=== PATIENT | female | born 1990 | race African-American/Black ===

== ENCOUNTER 2018-01-13 12:31 | Emergency (ER) | payer MEDICAID ==
[~2018-01-13] VITALS: Ht 152.4 cm; Wt 69.4 kg
[2018-01-13 12:55] VITALS: BP 136/90
== END 2018-01-13 16:08 | disposition left against medical advice (07) ==
LOC: ER 12:36
DX: B34.9 Viral infection, unspecified (principal); F17.210 Nicotine dependence, cigarettes, uncomplicated; J45.909 Unspecified asthma, uncomplicated; R53.1 Weakness

== ENCOUNTER 2023-10-29 10:30 | Emergency (ER) | payer MEDICAID ==
[~2023-10-29] VITALS: Ht 152.4 cm; Wt 83.1 kg
[2023-10-29 11:28] VITALS: BP 141/99; PULSE 109; RESP 18; O2SAT 98
[2023-10-29] MEDS: HYDROcodone-ACET 5/325MG TAB PO ONE (12:13)
[2023-10-29] MEDS: ONDANSETRON ODT 4 MG TAB PO ONE (12:15)
[2023-10-29 13:00] LABS: Basophils # (auto) 0.1 10 ^3/uL (0-0.2); Basophils % (auto) 0.6 % (0.0-2.0); Eosinophils # (auto) 0.1 10 ^3/uL (0-0.8); Eosinophils % (auto) 0.5 % (0.0-7.0); Hemoglobin 13.5 g/dL (12.2-16.2); Lymphocytes # (auto) 3.3 10 ^3/uL (0.4-5.4); Lymphocytes % (auto) 29.8 % (10.0-50.0); Mean Corpuscular Hemoglobin 28.4 pg (28.0-32.0); Monocytes # (auto) 0.9 10 ^3/uL (0-1.3); Monocytes % (auto) 7.9 % (0.0-12.0); Neutrophils # (auto) 6.7 10 ^3/uL (1.6-8.6); Neutrophils % (auto) 61.2 % (37.0-80.0); Red Blood Cells 4.77 10^6/uL (4.0-5.20); Red Cell Distribution Width 13.8 % (11.8-14.3); White Blood Cell 10.9 10^3/uL (4.4-10.8)
[2023-10-29 13:03] LABS: Anion Gap 6 (5-15); Carbon Dioxide 23 mmol/L (20-30); Chloride 109 mmol/L (98-107); Sodium 138 mmol/L (136-145)
[2023-10-29 13:04] LABS: Calcium 9.6 mg/dL (8.5-10.1)
[2023-10-29 13:09] LABS: BUN/Creatinine Ratio 8.8 (10.0-20.0); Blood Urea Nitrogen 6 mg/dL (9-23); Glucose 103 mg/dL (74-106)
[2023-10-29 13:23] LABS: Rapid Strep A Screen-Throat Negative
[2023-10-29] MEDS ORDERED: CEPH500T PO (13:43)
[2023-10-29] MEDS ORDERED: PRED20TA2 PO (13:43)
[2023-10-29] MEDS ORDERED: IBUP1TAB5 PO (13:43)
[2023-10-29] MEDS: cefTRIAXone SOD 1,000 MG VL IM ONE (13:49)
[2023-10-29 13:50] VITALS: TEMP 97.8
[2023-10-29] MEDS: IBUPROFEN 600 MG TAB PO ONE (13:50)
[2023-10-29] MEDS: DexAMETHasone 4 MG TAB PO ONE (13:58)
== END 2023-10-29 14:01 | disposition home or self-care (01) ==
LOC: ER 10:30
DX: L03.221 Cellulitis of neck (principal); L03.211 Cellulitis of face; J45.909 Unspecified asthma, uncomplicated; F17.210 Nicotine dependence, cigarettes, uncomplicated; Z79.1 Long term (current) use of non-steroidal anti-inflammatories (NSAID); Z79.899 Other long term (current) drug therapy
CPT/HCPCS: 36415; 70490; 80048; 85025; 86308; 87040; 87070; 87880; 96372; 99285; J0696; J8540; Q0162

== ENCOUNTER 2024-02-19 05:21 | Emergency (ER) | payer MEDICAID ==
[~2024-02-19] VITALS: Ht 152.4 cm; Wt 82.0 kg
[~2024-02-19 05:21] MED LIST: CEPH500T PO; IBUP1TAB5 PO; PRED20TA2 PO
[2024-02-19 07:05] VITALS: BP 148/87; TEMP 98.1; O2SAT 99
[2024-02-19 07:09] VITALS: PULSE 104; RESP 18
[2024-02-19] MEDS ORDERED: CIPR1SUS8 OT (07:23)
[2024-02-19] MEDS ORDERED: AUG875T PO (07:23)
== END 2024-02-19 07:23 | disposition home or self-care (01) ==
LOC: ER 05:21
DX: H66.92 Otitis media, unspecified, left ear (principal); F17.210 Nicotine dependence, cigarettes, uncomplicated; F12.10 Cannabis abuse, uncomplicated; J45.909 Unspecified asthma, uncomplicated; Z79.899 Other long term (current) drug therapy

== ENCOUNTER 2024-06-13 01:38 | Emergency (ER) | payer MEDICAID ==
[~2024-06-13] VITALS: Ht 152.4 cm; Wt 83.0 kg
[~2024-06-13 01:38] MED LIST changes: +AUG875T PO; +CIPR1SUS8 OT
[2024-06-13] MEDS ORDERED: CYCL-837 PO (02:18)
[2024-06-13] MEDS ORDERED: IBUP-1455 PO (02:18)
[2024-06-13] MEDS: KETOROLAC TROMETH 30 MG/ML 1ML VIAL IM ONE (02:35)
[2024-06-13 02:45] VITALS: BP 133/87; PULSE 97; RESP 19; TEMP 98.5; O2SAT 98
== END 2024-06-13 02:53 | disposition home or self-care (01) ==
LOC: ER 01:38
DX: S33.5XXA Sprain of ligaments of lumbar spine, initial encounter (principal); F17.210 Nicotine dependence, cigarettes, uncomplicated; J45.909 Unspecified asthma, uncomplicated; F12.90 Cannabis use, unspecified, uncomplicated; Z79.52 Long term (current) use of systemic steroids; Z79.899 Other long term (current) drug therapy; X58.XXXA Exposure to other specified factors, initial encounter; Y93.89 Activity, other specified; Y92.89 Other specified places as the place of occurrence of the external cause; Y99.8 Other external cause status
CPT/HCPCS: 96372; 99283; J1885

== ENCOUNTER 2024-06-22 09:22 | Emergency (ER) | payer MEDICAID ==
[~2024-06-22] VITALS: Ht 152.4 cm; Wt 83.2 kg
[~2024-06-22 09:22] MED LIST changes: +CYCL-837 PO; +IBUP-1455 PO
[2024-06-22] MEDS ORDERED: IBUP-1456 PO (10:24)
[2024-06-22] MEDS ORDERED: BACDST PO (10:24)
[2024-06-22 10:34] VITALS: BP 141/94; PULSE 116; RESP 16; TEMP 98.6; O2SAT 100
== END 2024-06-22 10:49 | disposition home or self-care (01) ==
LOC: ER 09:22
DX: L02.214 Cutaneous abscess of groin (principal); J45.909 Unspecified asthma, uncomplicated; F41.9 Anxiety disorder, unspecified; F17.210 Nicotine dependence, cigarettes, uncomplicated; F15.90 Other stimulant use, unspecified, uncomplicated; Z79.899 Other long term (current) drug therapy
CPT/HCPCS: 10060

== ENCOUNTER 2024-06-24 13:09 | Emergency (ER) | payer MEDICAID ==
[~2024-06-24] VITALS: Ht 152.4 cm; Wt 78.4 kg
[~2024-06-24 13:09] MED LIST changes: +BACDST PO; +IBUP-1456 PO
[2024-06-24 15:30] VITALS: BP 134/84; PULSE 110; RESP 18; TEMP 98; O2SAT 98
[2024-06-24] MEDS ORDERED: AUG875T PO (15:40)
== END 2024-06-24 16:07 | disposition home or self-care (01) ==
LOC: ER 13:09
DX: J45.909 Unspecified asthma, uncomplicated (principal); F17.210 Nicotine dependence, cigarettes, uncomplicated; Z48.817 Encounter for surgical aftercare following surgery on the skin and subcutaneous tissue; Z79.1 Long term (current) use of non-steroidal anti-inflammatories (NSAID); Z79.52 Long term (current) use of systemic steroids

== ENCOUNTER 2024-09-12 19:44 | Emergency (ER) | payer MEDICAID ==
[~2024-09-12] VITALS: Ht 152.4 cm; Wt 80.0 kg
[~2024-09-12 19:44] MED LIST changes: -AUG875T PO
--- NOTE | 2024-09-12 20:08 | ED.PDOC ---
Eye-HPI HPI Comments This is a 34-year-old female presents to the ED chief complaint of right-sided facial pain and neck pain x2 months. States she has been following with a dentist several times was seen at [facility] ER most recently 2 weeks ago for the same complaint. Patient states no imaging has been done only at the dentist which x-rays were done she was told it was her wisdom teeth. She was also placed on regimen of antibiotics and [place] for the pain however she states the [place] did not help pain continues. Numbness, weakness, focal neuro deficits, fever or chills. Chief Complaint: Earache Time Seen by MD: 19:54 Primary Care Provider: UNKNOWN Reviewed Notes: Nurses Notes, Medications, Allergies Allergies: Coded Allergies: NO KNOWN ALLERGIES (Unverified , 01/13/18) Home Meds Active Scripts Methylprednisolone (Medrol Dosepak) 4 Mg Paresh, 4 MG PO UD for 6 Days, #21 TAB UAD Prov:BINA MCGEE HALL COORDINATOR 09/12/24 Azithromycin (Azithromycin) 500 Mg Tab, 1 TAB PO DAILY for 5 Days, #5 TAB Prov:BINA MCGEE HALL COORDINATOR 09/12/24 Ibuprofen (Ibuprofen) 800 Mg Tab, 1 TAB PO TID, #24 TAB Prov:MARTHA MCINTOSH PA 06/22/24 Sulfamethoxazole W/Trimethopri (Bactrim Ds Tablet) 1 Tab Tb, 1 TAB PO BID for 10 Days, #20 TAB Prov:MARTHA MCINTOSH PA 06/22/24 Ibuprofen Micronized (Ibuprofen) 800 Mg Tab, 800 MG PO TID PRN, #40 TAB Prov:ULISES VELASQUEZ HALL COORDINATOR 06/13/24 Cyclobenzaprine Hcl (Cyclobenzaprine Hcl) 5 Mg Tab, 1 TAB PO TID PRN, #30 TAB Prov:ULISES VELASQUEZ HALL COORDINATOR 06/13/24 Ciprofloxacin-Dexamethasone (Ciprofloxacin/Dexamethaso 0.3-0.1 %) 1 Fátima Fátima, 4 DROP OT BID for 7 Days, #1 KIT 0 Refills Prov:WOJCIECH JOVEL FAVOR MAKER 02/19/24 Ibuprofen Micronized (Ibuprofen) 600 Mg Tab, 600 MG PO Q8HPRN PRN, #30 TAB 0 Refills Prov:JIN BOWERS HALL COORDINATOR 10/29/23 Prednisone (Prednisone) 20 Mg Tab, 20 MG PO DAILY for 5 Days, #5 TAB 0 Refills Prov:JIN BOWERS [facility] 10/29/23 Cephalexin Monohydrate (Cephalexin) 500 Mg Tab, 1 TAB PO QID for 10 Days, #40 TAB 0 Refills Prov:JIN BOWERS [facility] 10/29/23 Past Medical History PAST MEDICAL HISTORY: Anxiety, Asthma GLOBAL COMPENSATION MANAGER History: No Pertinent GLOBAL COMPENSATION MANAGER History Family History Family History: Unknown Social History Smoker: Cigarettes Alcohol: Denies ETOH Use Drugs: Marijuana Lives In: Home Constitutional: denies: chills, diaphoresis, fatigue, fever, malaise, sweats, weakness, others EENTM: reports: ear pain, others (Right-sided facial pain); denies: blurred vision, double vision, ear bleeding, ear discharge, ear drainage, ear ringing, eye pain, eye redness, hearing loss, mouth pain, mouth swelling, nasal discharge, nose bleeding, nose congestion, nose pain, photophobia, tearing, throat pain, throat swelling, voice changes Respiratory: denies: cough, hemoptysis, orthopnea, SOB at rest, shortness of breath, SOB with excertion, stridor, wheezing, others Cardiovascular: denies: chest pain, dizzy spells, diaphoresis, Dyspnea on exertion, edema, irregular heart beat, left arm pain, lightheadedness, palpitations, PND, syncope, others Gastrointestinal: denies: abdomen distended, abdominal pain, blood streaked bowels, constipated, diarrhea, dysphagia, difficulty swallowing, hematemesis, m matti, nausea, poor appetite, poor fluid intake, rectal bleeding, rectal pain, vomiting, others Genitourinary: denies: abnormal vagina bleeding, burning, dyspareunia, dysuria, flank pain, frequency, hematuria, incontinence, pain, , vagina discharge, urgency, others Neurological: denies: dizziness, fainting, headache, left sided numbness, left sided weakness, numbness, paresthesia, pre-existing deficit, right sided numbness, right sided weakness, seizure, speech problems, tingling, tremors, weakness, others Musculoskeletal: reports: neck pain; denies: back pain, gout, joint pain, joint swelling, muscle pain, muscle stiffness, others Integumetry: denies: bruises, change in color, change in hair/nails, dryness, laceration, lesions, lumps, rash, wounds, others Allergic/Immunocompromised: denies: Difficulty Healing, Frequent Infections, Hives, Itching, others Hematologic/Lymphatic: denies: anemia, blood clots, easy bleeding, easy bruising, swollen glands, others Endocrine: denies: excessive hunger, excessive sweating, excessive thirst, excessive urination, flushing, intolerance to cold, intolerance to heat, unexplained weight gain, unexplained weight loss, others Psychiatric: denies: anxiety, bipolar disorder, depression, hopeless, panic disorder, schizophrenia, sleepless, suicidal, others Physical Exam General Appearance: No Apparent Distress, Normal HEENT: Normal ENT Inspection, Pharynx Normal, TMs Normal Neck: Full Range of Motion, Non-Tender, Normal, Normal Inspection Respiratory: Chest Non-Tender, Lungs Clear, No Accessory Muscle Use, No Respiratory Distress, Normal Breath Sounds Cardiovascular: No Edema, No JVD, No Murmur, No Gallop, Normal Peripheral Pulses, Regular Rate/Rhythm Breast Exam: Deferred Gastrointestinal: No Organomegaly, Non Tender, No Pulsatile Mass, Normal Bowel Sounds, Soft Genitalia: Deferred Pelvic: Deferred Rectal: Deferred Extremities: Normal capillary refill, Normal inspection, Normal range of motion, Non-tender, No pedal edema Musculoskeletal : Apperance: Normal Neurologic: Alert, licensed occupational therapy assistant II-XII nml as Tested, No Motor Deficits, Normal Affect, Normal Mood, No Sensory Deficits Cerebellar Function: Normal Reflexes: Normal Skin: Dry, Normal Color, Warm Lymphatic: Cervical Adenopathy (R), No Adenopathy Was a procedure done? Was a procedure done?: No EENT DIFF Eye: N/A Ear: Otitis Media, Perforation Sore Throat: Viral Pharyngitis X-Ray, Labs, Meds, VS Vital Signs Date Time Temp Pulse Resp B/P (MAP) Pulse Ox O2 Delivery O2 Flow Rate FiO2 09/12/24 20:44 101 22 98 Room Air* 0 21 09/12/24 20:44 97.9 101 22 132/93 (106) 98 97.9 09/12/24 20:04 97.8 90 20 132/93 (106) 99 Current Medications Medications (Trade) Dose Ordered Sig/Sergey Route Start Time Stop Time Status Last Admin Ketorolac Tromethamine (Toradol Injection) 60 mg ONCE ONCE IM 09/12/24 20:15 09/12/24 20:16 DC 09/12/24 20:22 Oxycodone/ Acetaminophen (Percocet 5/ 325MG Tablet) 2 tab ONCE ONCE PO 09/12/24 20:15 09/12/24 20:16 DC 09/12/24 20:23 X-Ray, Labs, Meds, VS Comment CT cervical spine shows no acute findings or osseous lesions. C0 facial CT does show left sided maxillary sinus disease acute. We will treat patient for left maxillary acute sinusitis. She was given Toradol 60 mg and Decadron 10 mg IM. He was also given 5 mg of Percocet p.o., she notes complete resolution of her pain at this time in his requesting discharge. Script Medrol Dosepak and azithromycin since the patient did complete a 7 day course of Augmentin with no help. Advised patient on the importance of establishing and following up with her PCP and dental for continued management and re-evaluation. ER return precautions patient indicated understanding agrees with discharge plan of care. Advised patient not to drive while on Percocet. Time of 1ST Reevaluation: 21:29 Reevaluation 1ST: Improved Patient Education/Counseling: Diagnosis, Treatment, Prognosis, Need For Follow Up Family Education/Counseling: Diagnosis, Treatment, Prognosis, Need For Follow Up Departure 1 Departure Time of Disposition: 21:33 Impression: Primary Impression: Sinusitis, acute maxillary Qualified Codes: J01.01 - Acute recurrent maxillary sinusitis Disposition: HOME / SELF CARE / HOMELESS Condition: Stable e-Prescriptions Methylprednisolone (Medrol Dosepak) 4 Mg Paresh 4 MG PO UD for 6 Days, #21 TAB UAD Prov: BINA MCGEE 09/12/24 Azithromycin (Azithromycin) 500 Mg Tab 1 TAB PO DAILY for 5 Days, #5 TAB Prov: BINA MCGEE 09/12/24 Discharged With: Friend Critical Care Note Critical Care Time?: No Stability Stability form required: BINA Villeda Sep 12, 2024 20:08
[2024-09-12] MEDS: KETOROLAC TROMETH 60MG/2ML VIAL IM ONE (20:22)
[2024-09-12] MEDS: OXYCODONE W/ ACETAMINOPHEN 5/325MG TABLET PO ONE (20:23)
--- NOTE | 2024-09-12 20:43 | DVH ---
CLINICAL HISTORY: right side swelling and pain TECHNIQUE: CT exam of the cervical spine was performed without intravenous contrast. This exam was pe rformed according to our departmental dose optimization program. Up-to-date CT equipment and radiatio n dose reduction techniques are utilized as appropriate. WID: COMPARISON: CT NECK WITHOUT CONTRAST on DOS: 10/29/23 FINDINGS: There is normal cervical alignment aside from minimal anterolisthesis at C2-C3, C3-C4, C4-C5. The franky tebral body heights are maintained. No acute cervical fracture or subluxation is identified. No signi ficant central or neural foraminal narrowing is identified. The paraspinous soft tissues are unremar kable. The lung apices are clear. Small fluid level in the visualized left maxillary sinus. Mild mucosal thickening of the ethmoid air cells. Scattered dental caries in maxillary and mandibular teeth. IMPRESSION: 1. No acute fracture or traumatic malalignment. 2. Small fluid level in the visualized left maxillary sinus. Correlate clinically for acute sinusiti s. 3. Multiple dental caries in scattered visualized maxillary and mandibular teeth.
[2024-09-12 20:44] VITALS: BP 132/93; PULSE 101; RESP 22; TEMP 97.9; O2SAT 98
--- NOTE | 2024-09-12 20:46 | DVH ---
HISTORY: right side facial pain TECHNIQUE: Nonenhanced axial images through the facial bones with coronal and sagittal MPR. Radiation Dose Information: CT Dose: CTDI volume is 66.6 mGy. Dose-length product is 1140.74 mGy*cm FINDINGS: Mandible: No fracture Maxilla: No fracture Pterygoid plates: No fracture Zygomatic processes: No fracture. Zygomatic arches: No fracture Orbits: No fracture Sinuses: No fracture ; no air-fluid level Facial swelling: No significant IMPRESSION: 1. No acute facial fractures. Radiation optimization: All CT scans at this facility use at least one of these dose optimization kevon hniques: automated exposure control mA and/or kV adjustment per patient size (includes targeted exam s where dose is matched to clinical indication) or iterative reconstruction.
[2024-09-12] MEDS ORDERED: AZIT500T66 PO (21:33)
[2024-09-12] MEDS ORDERED: METH4PAK PO (21:33)
== END 2024-09-12 22:00 | disposition home or self-care (01) ==
LOC: ER 19:44
DX: J01.00 Acute maxillary sinusitis, unspecified (principal); J45.909 Unspecified asthma, uncomplicated; F41.9 Anxiety disorder, unspecified; F17.210 Nicotine dependence, cigarettes, uncomplicated; F15.90 Other stimulant use, unspecified, uncomplicated; Z79.1 Long term (current) use of non-steroidal anti-inflammatories (NSAID); Z79.52 Long term (current) use of systemic steroids; Z79.899 Other long term (current) drug therapy
CPT/HCPCS: 70486; 72125; 96372; 99285; J1885

== ENCOUNTER 2024-11-28 18:13 | Emergency (ER) | payer MEDICAID ==
[~2024-11-28] VITALS: Ht 154.9 cm; Wt 76.5 kg
--- NOTE | 2024-11-28 18:36 | ED.PDOC ---
Back pain HPI HPI Comments 34 y/o F, presents to the ED for CC of back pain. Patient states, that she has been experiencing mid thoracic back pain x1day. 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 Patient vapes, drinks ETOH, and smokes marijuana. Patient denies fever, chills, weakness, or N/V/D. No other symptoms or modifying factors at this time. Chief Complaint: Back Pain Time Seen by MD: 18:27 Primary Care Provider: UNKNOWN Reviewed Notes: Nurses Notes, Medications, Allergies Allergies: Coded Allergies: NO KNOWN ALLERGIES (Unverified , 01/13/18) Home Meds Active Scripts Tramadol Hcl (Tramadol Hcl) 50 Mg Tab, 50 MG PO Q12HP PRN for 5 Days, #10 TAB Prov:GIRISH MACKAY MD 11/28/24 Ibuprofen (Ibuprofen) 800 Mg Tab, 1 TAB PO TID, #24 TAB Prov:MARTHA MCINTOSH 06/22/24 Sulfamethoxazole W/Trimethopri (Bactrim Ds Tablet) 1 Tab Tb, 1 TAB PO BID for 10 Days, #20 TAB Prov:MARTHA MCINTOSH 06/22/24 Ibuprofen Micronized (Ibuprofen) 800 Mg Tab, 800 MG PO TID PRN, #40 TAB Prov:ULISES VELASQUEZ 06/13/24 Cyclobenzaprine Hcl (Cyclobenzaprine Hcl) 5 Mg Tab, 1 TAB PO TID PRN, #30 TAB Prov:ULISES VELASQUEZ 06/13/24 Ciprofloxacin-Dexamethasone (Ciprofloxacin/Dexamethaso 0.3-0.1 %) 1 Fátima Fátima, 4 DROP OT BID for 7 Days, #1 KIT 0 Refills Prov:WOJCIECH JOVEL DIE POLISHER 02/19/24 Ibuprofen Micronized (Ibuprofen) 600 Mg Tab, 600 MG PO Q8HPRN PRN, #30 TAB 0 Refills Prov:JIN BOWERS SLIDE DEVELOPER 10/29/23 Prednisone (Prednisone) 20 Mg Tab, 20 MG PO DAILY for 5 Days, #5 TAB 0 Refills Prov:JIN BOWERSP 10/29/23 Cephalexin Monohydrate (Cephalexin) 500 Mg Tab, 1 TAB PO QID for 10 Days, #40 TAB 0 Refills Prov:JIN BOWERS [facility] 10/29/23 Information Source: Patient Mode of Arrival: Ambulatory Timing: Hours Duration: Since onset Location of Back pain: (L) Lumbar Severity: Moderate Prehospital treatment: None Onset: Twisting Circumstance: Work Related History of: None Associated signs and symptoms: None Past Medical History PAST MEDICAL HISTORY: Anxiety, Asthma DEVULCANIZER HEAD History: No Pertinent DEVULCANIZER HEAD History Family History Family History: Unknown Social History Smoker: Other (VAPES) Alcohol: Occasionally Drugs: Marijuana Lives In: Home Constitutional: denies: chills, diaphoresis, fatigue, fever, malaise, sweats, weakness, others EENTM: denies: blurred vision, double vision, ear bleeding, ear discharge, ear drainage, ear pain, ear ringing, eye pain, eye redness, hearing loss, mouth pain, mouth swelling, nasal discharge, nose bleeding, nose congestion, nose pain, photophobia, tearing, throat pain, throat swelling, voice changes, others Respiratory: denies: cough, hemoptysis, orthopnea, SOB at rest, shortness of breath, SOB with excertion, stridor, wheezing, others Cardiovascular: denies: chest pain, dizzy spells, diaphoresis, Dyspnea on exertion, edema, irregular heart beat, left arm pain, lightheadedness, palpitations, PND, syncope, others Gastrointestinal: denies: abdomen distended, abdominal pain, blood streaked bowels, constipated, diarrhea, dysphagia, difficulty swallowing, hematemesis, melena, nausea, poor appetite, poor fluid intake, rectal bleeding, rectal pain, vomiting, others Genitourinary: denies: abnormal vagina bleeding, burning, dyspareunia, dysuria, flank pain, frequency, hematuria, incontinence, pain, , vagina discharge, urgency, others Neurological: denies: dizziness, fainting, headache, left sided numbness, left sided weakness, numbness, paresthesia, pre-existing deficit, right sided numbness, right sided weakness, seizure, speech problems, tingling, tremors, weakness, others Musculoskeletal: reports: back pain; denies: gout, joint pain, joint swelling, muscle pain, muscle stiffness, neck pain, others Integumetry: denies: bruises, change in color, change in hair/nails, dryness, laceration, lesions, lumps, rash, wounds, others Allergic/Immunocompromised: denies: Difficulty Healing, Frequent Infections, Hives, Itching, others Hematologic/Lymphatic: denies: anemia, blood clots, easy bleeding, easy bruising, swollen glands, others Endocrine: denies: excessive hunger, excessive sweating, excessive thirst, excessive urination, flushing, intolerance to cold, intolerance to heat, unexplained weight gain, unexplained weight loss, others Psychiatric: denies: anxiety, bipolar disorder, depression, hopeless, panic disorder, schizophrenia, sleepless, suicidal, others All Other Systems: Reviewed and Negative Physical Exam General Appearance: No Apparent Distress HEENT: Normal ENT Inspection, Pharynx Normal, TMs Normal Neck: Full Range of Motion, Non-Tender, Normal, Normal Inspection Respiratory: Chest Non-Tender, Lungs Clear, No Accessory Muscle Use, No Respiratory Distress, Normal Breath Sounds Cardiovascular: No Edema, No JVD, No Murmur, No Gallop, Normal Peripheral Pulses, Regular Rate/Rhythm Breast Exam: Deferred Gastrointestinal: No Organomegaly, Non Tender, No Pulsatile Mass, Normal Bowel Sounds, Soft Genitalia: Deferred Pelvic: Deferred Rectal: Deferred Extremities: No calf tenderness, Normal capillary refill, Normal inspection, Normal range of motion, Non-tender, No pedal edema Musculoskeletal : Location: Left Extremity Location: Chest Apperance: Limited ROM, Tenderness: Mild Neurologic: Alert, health and fitness professor II-XII nml as Tested, No Motor Deficits, Normal Affect, Normal Mood, No Sensory Deficits Cerebellar Function: Normal Reflexes: Normal Skin: Dry, Normal Color, Warm Lymphatic: No Adenopathy Was a procedure done? Was a procedure done?: No Back Pain Differential Dx Differential Diagnosis: Musculoskeletal Pain, Strain X-Ray, Labs, Meds, VS Vital Signs Date Time Temp Pulse Resp B/P (MAP) Pulse Ox O2 Delivery O2 Flow Rate FiO2 11/28/24 19:47 94 17 97 Room Air* 0 21 11/28/24 19:45 98.1 94 16 120/70 (87) 100 98.1 11/28/24 18:50 105 16 113/66 (82) 97 11/28/24 18:24 99.1 118 20 136/95 (109) 100 Current Medications Medications (Trade) Dose Ordered Sig/Sergey Route Start Time Stop Time Status Last Admin Ketorolac Tromethamine (Toradol Injection) 60 mg ONCE ONCE IM 11/28/24 18:30 11/28/24 18:31 DC 11/28/24 19:49 CHEST X-RAY/RIB series is negative The patient is being discharged after receiving Toradol The patient will return to the emergency department's condition worsens. The patient was given a prescription of tramadol Images Reviewed?: Images reviewed and evaluated by me Time of 1ST Reevaluation: 18:57 Reevaluation 1ST: Unchanged Patient Education/Counseling: Diagnosis, Treatment, Prognosis, Need For Follow Up Family Education/Counseling: No Family Present Departure 1 Departure Time of Disposition: 19:48 Impression: Primary Impression: Chest wall contusion Qualified Codes: S20.212A - Contusion of left front wall of thorax, initial encounter Disposition: HOME / SELF CARE / HOMELESS Condition: Fair e-Prescriptions Tramadol Hcl (Tramadol Hcl) 50 Mg Tab 50 MG PO Q12HP PRN for 5 Days, #10 TAB Prov: GIRISH MACKAY MD 11/28/24 Discharged With: Self Critical Care Note Critical Care Time?: No Stability Stability form required: No Heart Score Heart Score: Heart Score Response (Comments) Value History N/A 0 EKG N/A 0 Age N/A 0 Risk Factors N/A 0 Troponin N/A 0 Total 0 I personally scribed for GIRISH MACKAY MD ([email or web address]) on 11/28/24 at 18:36. Electronically submitted by Juana Lynch ([email or web address]). GIRISH MACKAY MD Nov 28, 2024 18:36
--- NOTE | 2024-11-28 19:00 | DVH ---
FRONTAL CHEST AND LEFT RIB RADIOGRAPHS HISTORY: PAIN TECHNIQUE: Multiple views of the left ribs with frontal view of the chest. COMPARISON: None. FINDINGS: The trachea is midline. The cardiac silhouette and mediastinum are within normal limits. No pneumothorax, pleural effusions, or consolidations. There is no evidence of an acute fracture, dislocation, blastic, or lytic lesions. No radiopaque foreign bodies. No superficial soft tissue abnormalities. Impression: 1. No evidence of an acute rib fracture. 2. No acute cardiopulmonary disease.
[2024-11-28 19:45] VITALS: BP 120/70; TEMP 98.1
[2024-11-28 19:47] VITALS: PULSE 94; RESP 17; O2SAT 97
[2024-11-28] MEDS: KETOROLAC TROMETH 60MG/2ML VIAL IM ONE (19:49)
[2024-11-28] MEDS ORDERED: TRAM50TA2 PO (19:51)
== END 2024-11-28 20:12 | disposition home or self-care (01) ==
LOC: ER 18:13
DX: S20.212A Contusion of left front wall of thorax, initial encounter (principal); J45.909 Unspecified asthma, uncomplicated; F12.90 Cannabis use, unspecified, uncomplicated; Z79.899 Other long term (current) drug therapy; X50.1XXA Overexertion from prolonged static or awkward postures, initial encounter; Y93.89 Activity, other specified; Y92.89 Other specified places as the place of occurrence of the external cause; Y99.8 Other external cause status
CPT/HCPCS: 71101; 96372; 99283; J1885